=== PATIENT | female | born 1985 | race Caucasian/White ===

== ENCOUNTER 2020-09-24 11:47 | Inpatient (IN) | payer SELFPAY ==
[2020-09-24 12:42] VITALS: BP 112/79; PULSE 119; RESP 119; TEMP 36.3; O2SAT 99
[2020-09-24 14:00] VITALS: BP 112/79; PULSE 119; RESP 20; TEMP 36.3; O2SAT 99
--- NOTE | 2020-09-24 14:49 | P.HP_ITS ---
Providers/Chief Complaint Admitting Physician: Checo Mayfield MD Primary Care Provider: Inderjit Ramesh Chief Complaint: SI HPI NPU History of Present Illness Mayte Camacho is a 34 year old female with previous psychiatric diagnoses of bipolar disorder, depression, PTSD, and anxiety, who presented to the [facility] ED with complaints of suicidal ideation and a plan to overdose on meth, as well as delusions about people following her. She was medically stabilized and cleared, before being transferred here. The ED note states: Patient reports that she has been having suicidal thoughts and that her main source of stress right now is her child and baby daddy. Patient was initially aggressive and was sedated. She was sleeping for some time before the assessment could be completed. Patient reported she has been having symptoms of depression and anxiety, as well as manic symptoms since she was 14. Patient reported that she does not have a mental health care provider and the community. She was not sure of when her last inpatient psychiatric hospitalization was, but her chart indicates it was in February of this year. Patient did report suicidal ideation with plan and intent and his attempts. She was limited as to the details she was able to provide, but she indicated there were all kinds of suicidal plan she had. The plan she had originally expressed when presenting of the hospital was that she would overdose on methamphetamine. Patient reports her suicidal ideation was strong at this time (may be a 5/5) but she said the thoughts have been happening may be about once a week, she states. Patient did report feelings of helplessness and hopelessness, and denied having a reason for living at this time. Patient denied homicidal ideation. Patient has been known to be using substances such as methamphetamine and marijuana in the past, but she did not disclose what she may have been using recently. Patient was irritable but calm and cooperative for the assessment, stating that she was very tired and wanted to sleep. Due to high risk of harm to self, patient does meet criteria for inpatient psychiatric hospital admission. Additional records from [facility] include the following: EKG from 09/23/2020 was normal sinus rhythm and a normal ECG. Labs from 09/22/2020 showed normal CBC, CMP. Ethanol level was negative. UA was positive for leukocytes 3- 5 RBCs, and 1+ bacteria. Urine drug screen was positive for amphetamines and cannabinoids. Urine culture was negative. When I attempted to meet with the patient, she was surly and uncooperative. She did not answer my questions. I will continue the evaluation later. Meds NPU Home Medications Medication Instructions Recorded Confirmed Last Taken Type No Known Home Medications 09/24/20 09/24/20 Unknown History Allergies Allergy/AdvReac Type Severity Reaction Status Date / Time No Known Allergies Allergy Verified 09/24/20 19:42 Mental Status Exam MSE Comments: I met with the patient in her room, and she was unkempt and dressed in hospital scrubs. She was agitated, uncooperative, and made ppor eye contact. She had psychomotor agitation. Speech was somewhat pressured. Alert, oriented to person, and situation. Attention and concentration were impaired. Memory was not tested Mood is irritable and anxious. Affect is hostile. Thought process was perseverative. Thought content: She did not appear to respond to unseen others and there were delusions noted. Records indicate that she has felt that people were following her. She did not spontaneously report suicidal or homicidal ideation. Insight and judgment appear to impaired. Vitals/I&O/Wt Last Vital Signs Temp 97.4 F L 09/24/20 14:00 Pulse 119 H 09/24/20 14:00 Resp 20 H 09/24/20 14:00 BP 112/79 09/24/20 14:00 Pulse Ox 99 09/24/20 14:00 A&P Additional A&P Information Mayte Camacho is a 34 year old female with previous psychiatric diagnoses of bipolar disorder, depression, PTSD, and anxiety, who presented to the [facility] ED with complaints of suicidal ideation and a plan to overdose on meth, as well as delusions about people following her. 1. Continue current medication. 2. Continue every 15 minute checks for safety. 3. Encourage individual, group and milieu therapies. 4. Encourage sober living treatment after discharge at the highest level of care to which he is willing to commit. Involuntary Hold Information 96 Hour Hold: 96 Hour Involuntary Admission: No Attestations NPU Medical Necessity Statement*: Psychiatric hospitalization is medically necessary to prevent access to lethal means, to reevaluate medication, and to coordinate a safe discharge. Patient will be in the hospital for over 2 midnights. Likely length of stay is 3 to 5 days. Coding Level of Care Code Acute Automatic [employer] Warper Tender for Tootie Morales
--- NOTE | 2020-09-24 16:32 | PC.NURSE ---
PT BEING VERY AGGRESSIVE VERBALLY WITH STAFF, CALLED THIS NURSE A BITCH SEVERAL TIMES. PT THREATENED TO PUNCH WHOMEVER SHE WANTS TO CLOSED ROOM AT THIS TIME D/T AGGRESSION
[2020-09-24] MEDS: OLANZapine 5 mg ODT PO (16:52)
--- NOTE | 2020-09-24 16:54 | PC.NURSE ---
Addendum entered by Rebecca Dolan LPN 09/24/20 18:02: prn med effective at this time no c/o agitation Original Note: PRN ZYPREXA ZYDIS 5 MG GIVEN PO PER PT C/O INCREASED AGITATION/VERBAL AGGRESSION/THREATS. SEE PREVIOUS NURSES NOTE.
[2020-09-24 21:23] VITALS: RESP 18
[2020-09-25 06:00] VITALS: BP 99/63; PULSE 84; RESP 18; TEMP 37; O2SAT 95
--- NOTE | 2020-09-25 10:00 | PM.NDC ---
Diagnoses at Discharge Discharge Diagnosis (1) Bipolar disorder, current episode mixed, moderate: Status: Acute (2) PTSD (post-traumatic stress disorder): Status: Acute (3) Methamphetamine abuse: Status: Acute (4) Marijuana abuse: Status: Acute (5) Anxiety disorder, unspecified: Status: Acute Reason for Visit Reason for Visit: SI Brief History: Mayte Camacho is a 34 year old female with previous psychiatric diagnoses of bipolar disorder, depression, PTSD, and anxiety, who presented to the [facility] ED with complaints of suicidal ideation and a plan to overdose on meth, as well as delusions about people following her. She was medically stabilized and cleared, before being transferred here. The ED note states: Patient reports that she has been having suicidal thoughts and that her main source of stress right now is her child and baby daddy. Patient was initially aggressive and was sedated. She was sleeping for some time before the assessment could be completed. Patient reported she has been having symptoms of depression and anxiety, as well as manic symptoms since she was 14. Patient reported that she does not have a mental health care provider and the community. She was not sure of when her last inpatient psychiatric hospitalization was, but her chart indicates it was in February of this year. Patient did report suicidal ideation with plan and intent and his attempts. She was limited as to the details she was able to provide, but she indicated there were all kinds of suicidal plan she had. The plan she had originally expressed when presenting of the hospital was that she would overdose on methamphetamine. Patient reports her suicidal ideation was strong at this time (may be a 5/5) but she said the thoughts have been happening may be about once a week, she states. Patient did report feelings of helplessness and hopelessness, and denied having a reason for living at this time. Patient denied homicidal ideation. Patient has been known to be using substances such as methamphetamine and marijuana in the past, but she did not disclose what she may have been using recently. Patient was irritable but calm and cooperative for the assessment, stating that she was very tired and wanted to sleep. Due to high risk of harm to self, patient does meet criteria for inpatient psychiatric hospital admission. Additional records from [facility] include the following: EKG from 09/23/2020 was normal sinus rhythm and a normal ECG. Labs from 09/22/2020 showed normal CBC, CMP. Ethanol level was negative. UA was positive for leukocytes 3-5 RBCs, and 1+ bacteria. Urine drug screen was positive for amphetamines and cannabinoids. Urine culture was negative. Hospital Course Hospital Course Mayte Camacho is a 34 year old female with previous psychiatric diagnoses of bipolar disorder, depression, PTSD, and anxiety, who presented to the [facility] ED with complaints of suicidal ideation and a plan to overdose on meth, as well as delusions about people following her. She was admitted to the neuropsychiatric unit for definitive treatment of these issues. On the unit, she was upset with the treatment she was receiving. She interpreted others' actions as disrespectful to her. She said that was making her too upset and requested to go back home. She said, I am the one who brought myself here, so I should be able to leave. Indeed, she is on a voluntary status. She says she feels angry now, but side of this environment will calm down. She says she will be feel better if she is back at her house in [place]. She says she is not going to hurt anybody. She denies suicidal and homicidal ideation. She denies auditory and visual hallucinations. None of the delusions that were reported 2 days ago are apparent. It is likely that the meth has cleared out of her system, and her delusions have resolved as well. She was agitated when she felt that the staff member was disrespecting her, but became calm her when she knew she could leave the hospital and return home. She was able to contract for safety prior to discharge. During the hospitalization, patient had routine laboratory studies which were within normal limits except for few outliers. Additionally there was a general medical evaluation which was also within normal limits and revealed no new acute processes. Discharge Summary: At the time of discharge, psychosis and lethality were denied. Mood and anxiety were still escalated, but were expected to diminish outside of the confinement of the hospital.. Patient endorsed a plan to avoid all drugs of abuse and follow-up with the aftercare recommendations of the treatment team. Treatment team agrees that the patient is safe and appropriate for discharge. Patient was evaluated and deemed to be absent credible lethality, and had achieved the maximum benefit from an inpatient hospitalization, so was discharged. She is planning to return to living at her home and following up with her usual providers. Involuntary Hold Information 96 Hour Hold: 96 Hour Involuntary Admission: No Mental Status Exam MSE Comments: I met with the patient in her room, along with the refinery operator vapor recovery unit Abel. She was upset about an interaction she had with staff. Initially she talked about staying here to get her medications adjusted. Then she said it would be too difficult for her, and that she wanted to leave. She asked if we could arrange a ride for her and gave us the address where she was living. She was somewhat cooperative and made poor eye contact. She became calmer when she knew that she was going to be able to leave. She had had psychomotor agitation which decreased after she realize she could leave. Speech was somewhat loud and pressured, which also normalized after the plans were made for her ride.. Alert, oriented to person, and situation. Attention and concentration were fair. Memory was not tested Mood is irritable and anxious. Affect is irritable, but became less so. Thought process was perseverative. Thought content: She does not respond to unseen others and there are delusions noted. No preoccupation with people following her. She denies suicidal and homicidal ideation. Insight and judgment are improved but can be diminished by emotional intensity. Discharge Data Vitals: Last Vital Signs Temp 98.6 F 09/25/20 06:00 Pulse 84 09/25/20 06:00 Resp 18 09/25/20 06:00 BP 99/63 09/25/20 06:00 Pulse Ox 95 09/25/20 06:00 Discharge Plan Discharge Patient Disposition: Home Condition: Stable Prescriptions: No Action No Known Home Medications RF: 0 Discharge Orders: Discharge Order (Routine); Ordered 09/25/20 Ordered By: Checo Mayfield Discharge Diet: Usual diet Discharge Activity: Resume usual activity Patient Instructions: Opioid Safety Discharge Attestations NPU Time Spent in Discharge Care*: greater than 30 min Specific Discharge Activities: Specific discharge activities: educating patient, discussing with family independence case manager/social workers/dc planners, documenting/other paperwork and evaluating patient/reviewing data Status at Discharge: Cognitive status at discharge: cognitively intact, Behavioral status at discharge: can be uncooperative, Functional status at discharge: independent ambulation Overall status at discharge: patient is progressing back to baseline Coding Level of Care Code Acute Chg FW DC note Diagnoses Bipolar disorder, current episode mixed, moderate F31.62 PTSD (post-traumatic stress disorder) F43.10 Methamphetamine abuse F15.10 Marijuana abuse F12.10 Anxiety disorder, unspecified F41.9
[2020-09-25 10:02] VITALS: BP 99/63; PULSE 84; RESP 18; TEMP 37; O2SAT 95
[2020-09-25] MEDS: ARIPiprazole 10 mg Tablet PO (10:18)
[2020-09-25] MEDS: OLANZapine 10 mg ODT PO (10:20)
== END 2020-09-25 10:34 | disposition home or self-care (01) | DRG 885 ==
PROVIDERS: Admitting Provider Psychiatry & Neurology Child & Adolescent Psychiatry; PCP Family Medicine; Visit Provider Psychiatry & Neurology Child & Adolescent Psychiatry
DX: F31.62 Bipolar disorder, current episode mixed, moderate (principal); R45.851 Suicidal ideations; F43.10 Post-traumatic stress disorder, unspecified; F15.10 Other stimulant abuse, uncomplicated; F12.10 Cannabis abuse, uncomplicated; F41.9 Anxiety disorder, unspecified